=== PATIENT | female | born 1975 | race Caucasian/White ===

== ENCOUNTER → 2017-08-16 | Outpatient (CLI) | payer BC ==
--- NOTE | 2017-08-16 12:40 | WWHP ---
[facility] - HISTORY AND PHYSICAL DATE OF SERVICE: 08/16/2017 CHIEF COMPLAINT: The patient is here for her routine gynecologic exam and mammogram. HPI: This is a 41-year-old, G3, P2-0-1-2 with an LMP of 07/29/17. The patient is without gynecologic complaints. She states her periods are regular every month. PAST MEDICAL HISTORY: Chronic hypertension and depression. MEDICATIONS: 1. Prozac 20 mg daily. 2. Spironolactone 25 mg daily. 3. Lisinopril 10 mg daily. 4. Valtrex 500 mg b.i.d. x3 days p.r.n. She states she has not had frequent outbreaks. ALLERGIES: Allergies to WELLBUTRIN. 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 SOCIAL HISTORY: She denies tobacco and drug use and has about 1 alcohol containing drink per month. 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 She is single. REVIEW OF SYSTEMS: She has gained about 26 pounds over the last 3 years. She denies respiratory or cardiac problems. GI: She has noticed she has problems with dairy foods and believes she is lactose intolerant. PHYSICAL EXAM: Blood pressure 116/76, height 5 feet 5 inches, weight 253 pounds, temperature 99.1, pulse 105. This is a well-developed, heavyset white female, who is alert and oriented x3, in no acute distress. HEENT is within normal limits. NECK: Supple without mass or thyromegaly. CHEST AND LUNGS: Clear to auscultation. HEART: Regular rate and rhythm. Breasts are without mass or discharge. Axillary exam is negative for adenopathy. BACK: Negative for CVA tenderness. ABDOMEN: Obese, soft, nontender, without palpable masses. PELVIC EXAM: Normal external genitalia. The cervix and vagina appear normal. There is no evidence of prolapse. The uterus is mid position nongravid size and nontender. There are no palpable adnexal masses or tenderness. Rectal exam is a is negative for mass or tenderness and is negative for occult blood. EXTREMITIES: Nontender. IMPRESSION: 1. A 41-year-old female with normal gynecologic exam. 2. Overweight. PLAN: 1. Pap smear was performed. 2. Self breast examination was discussed. 3. Mammogram will be done today. 4. We have had a long discussion regarding weight control. I have stressed the importance of healthy eating, regular meals, adequate protein and fiber as well as regular exercise. I also recommended she consider Weight Watchers to help with weight control. 5. Osteoporosis prevention was discussed. 6. She will return in 1 year. GEORGE / JUANN: [id number] /
--- NOTE | 2017-08-17 09:13 | MM ---
Reason for exam: screening (asymptomatic). Last mammogram was performed 2 years and 10 months ago. History: Family history of breast cancer in maternal aunt. Physical Findings: A clinical breast exam by your physician is recommended on an annual basis and results should be correlated with mammographic findings. MG Screening Mammo w CAD Bilateral CC and MLO view(s) were taken. Prior study comparison: October 29, 2014, bilateral MG screening mammo w CAD. October 23, 2013, bilateral digital screening mammo w/CAD. There are scattered fibroglandular densities. There is chronic nodularity in the right breast. There is no discrete abnormality. ASSESSMENT: Negative, BI-RAD 1 RECOMMENDATION: Routine screening mammogram of both breasts in 1 year.
== END | disposition home or self-care (01) ==
LOC: WWCWWP 10:02
PROVIDERS: ATTEND Obstetrics & Gynecology
DX: Z12.31 Encounter for screening mammogram for malignant neoplasm of breast (principal)

== ENCOUNTER → 2019-08-22 | Outpatient (CLI) | payer SELFPAY ==
--- NOTE | 2019-08-23 09:05 | MM ---
Reason for exam: additional evaluation requested from abnormal screening. Last mammogram was performed less than 1 month ago. History: Family history of breast cancer in maternal aunt. Physical Findings: Nurse did not find any significant physical abnormalities on exam. MG Work Up Mamm w CAD RT Spot compression CC, spot compression MLO, and LM view(s) were taken of the right breast. Prior study comparison: August 09, 2019, bilateral MG foundation screening mammo. August 16, 2017, bilateral MG screening mammo w CAD. There are scattered fibroglandular densities. These results were verbally communicated with the patient and result sheet given to the patient on 08/22/19. ASSESSMENT: Probably benign, BI-RAD 3 RECOMMENDATION: Follow-up diagnostic mammogram of the right breast in 6 months.
== END | disposition home or self-care (01) ==
LOC: RADMAMWWP 14:36
PROVIDERS: ATTEND Family Medicine
DX: R92.8 Other abnormal and inconclusive findings on diagnostic imaging of breast (principal)
CPT/HCPCS: 77065

== ENCOUNTER → 2020-01-12 | Outpatient (CLI) | payer BC ==
--- NOTE | 2020-01-12 08:21 | MR ---
EXAMINATION TYPE: MR iac wo/w con DATE OF EXAM: 01/12/2020 COMPARISON: NONE HISTORY: Disorder of acoustic nerve, hearing loss bilaterally. TECHNIQUE: Multiplanar, multisequence images of the brain and brainstem is performed without and with IV contras t, utilizing 11 mL intravenous Gadavist . Acoustic nerve disorder protocol. FINDINGS: Diffusion weighted images demonstrate no evidence of a recent infarct or other diffusion ab normality. There is no extra-axial fluid collection or significant white matter signal abnormality. The ventricular system and cisternal spaces are normal in size and appearance. The brain volume is age appropriate. There is focal area of CSF prominence measuring 1.2 x 1.1 x 1.0 cm axial image 12 an d sagittal image 7 along the medial superior aspect left temporal lobe at junction with the parietal lobe consistent with small arachnoid cyst adjacent to the midbrain with local mass effect adjacent to the left P1 segment. Midline structures demonstrate normal morphology. The craniocervical junction appears within normal limits. Post contrast images demonstrate no abnormal enhancement. The dural venous sinuses appear pa tent. Mild mucosal thickening throughout the ethmoid sinuses bilaterally. Nasal septum deviated to le ft of midline. No suspicious fluid signal mastoid air cells bilaterally. Vestibulocochlear complexes are symmetric a nd thought within normal limits. No suspicious enhancing cerebellopontine angle mass identified bilat erally. IMPRESSION: 1. No suspicious mastoiditis or enhancing mass to account for patient's symptoms of bilateral hearing loss. 2. Small 1.2 cm deep left arachnoid cyst causing local mass effect or compression of the deep superio r aspect left temporal lobe for reference axial image 12. 3. Mild chronic ethmoid sinusitis.
== END | disposition home or self-care (01) ==
LOC: RADMRIMAIN 07:03
PROVIDERS: ATTEND Otolaryngology
DX: G93.0 Cerebral cysts (principal); H93.3X3 Disorders of bilateral acoustic nerves; Z88.8 Allergy status to other drugs, medicaments and biological substances
CPT/HCPCS: 70553; A9585

== ENCOUNTER → 2020-10-18 | Outpatient (CLI) | payer OTHER ==
--- NOTE | 2020-10-18 11:04 | MR ---
EXAMINATION TYPE: MR cervical spine wo con DATE OF EXAM: 10/18/2020 COMPARISON: None HISTORY: Spondylosis CONTRAST: Performed utilizing 0 mL intravenous Gadavist gadolinium contrast. TECHNIQUE: Multiplanar multiecho imaging on a 3.0 Lulu magnet is performed through the cervical spin e. FINDINGS: The craniovertebral junction is normal. Vertebral body alignment is normal. C7-T1: No focal disc herniation or significant disc bulge is evident. No spinal canal stenosis or n eural foraminal stenosis is present. C6-7: No focal disc herniation or significant disc bulge is evident. No spinal canal stenosis or reina ral foraminal stenosis is present. C5-6: There is a broad-based right paracentral disc herniation extending into the right lateral direc tion causing moderate foraminal narrowing. Mild anterior thecal sac compression is present. Cord comp ression is not identified. No spinal canal stenosis is present.. C4-5: There is a large broad-based disc bulge with anterior thecal sac compression. No AP spinal yenny l stenosis is present. There is cord contact with mild cord flattening on the right. No signal abnorm ality is evident. Right foraminal narrowing is present. C3-4: Broad-based disc bulge is present with anterior thecal sac flattening. No spinal canal stenosis present. Neural foramen are patent. C2-3: No focal disc herniation or significant disc bulge is evident. No spinal canal stenosis or reina ral foraminal stenosis is present. Some very minimal syrinx may be present C6-7 and posterior to C7 extending towards the upper thoracic cord. This appears minimal. Recommend follow-up cervical spine with contrast for additional evaluati on. IMPRESSIONS: 1. Large broad right paracentral and right lateral disc herniation C5-C6 causing foraminal narrowing. 2. Large broad-based right paracentral and right lateral disc herniation C4-5 has cord contact and mi ld cord flattening. Foraminal narrowing is present. 3. Minimal syrinx may be within the cervical thoracic junction. Recommend contrast CT cervical spine for additional evaluation.
== END | disposition home or self-care (01) ==
LOC: RADMRIMAIN 10:11
PROVIDERS: ATTEND Neurological Surgery
DX: M48.02 Spinal stenosis, cervical region (principal); M47.12 Other spondylosis with myelopathy, cervical region; M50.021 Cervical disc disorder at C4-C5 level with myelopathy
CPT/HCPCS: 72141

== ENCOUNTER → 2021-10-20 | Outpatient (CLI) | payer BC ==
[2021-10-20 14:07] VITALS: BP 136/82; PULSE 77; RESP 18; TEMP 98.1
--- NOTE | 2021-10-20 15:01 | P.HPOB ---
History of Present Illness H&P Date: 10/20/21 Chief Complaint: The patient is here for her routine gynecologic exam and ma mmogram. This is a 46-year-old 012 with an LMP of 10/06/2021. It is been about 4 years since her last pelvic exam. Her last Pap smear on 08/16/2017 showed low- grade ANTHONY and she did have a colposcopic examination by Dr. Love which also showed low-grade changes. She was instructed to have a follow-up Pap smear within the year, but she states she has not had a Pap smear since then. She do es have occasional genital HSV outbreaks and thinks she has had about 4 during the past year. She no longer uses suppressive Valtrex treatment. She has had occasional vulvar pruritus especially year right before a menstrual period. She denies vaginal discharge or vaginal odor. She did have some itching last night. She used an [id number] yeast infection cream about 2 months ago for such itching. She states she has not been sexually active in the past 4 years. Review of Systems She has lost about 12 pounds since she was here 4 years ago. She denies respir atory, cardiac, or GI problems. 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 She also has had a history of GC and chlamydia in the past. History of Any Multi-Drug Resistant Organisms: None Reported Past Surgical History: Section, Cholecystectomy Additional Past Surgical History / Comment(s): section 2 and voluntary termination of in the past. Past Psychological History: Depression Smoking Status: Former smoker Past Alcohol Use History: Occasional (2 per week) Past Drug Use History: None Reported Additional History: She is single and is not seeing any beta this time. 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 Maternal grandparents both had lung cancer. Medications and Allergies Home Medications Medication Instructions Recorded Confirmed Type FLUoxetine HCL [PROzac] 40 mg PO DAILY 10/20/21 10/20/21 History Lisinopril [Zestril] 25 mg PO DAILY 10/20/21 10/20/21 History Allergies Allergy/AdvReac Type Severity Reaction Status Date / Time bupropion [From Wellbutrin] Allergy Swelling Unverified 10/20/21 14:07 Exam Vital Signs Temp Pulse Resp BP Pulse Ox 10/20/21 14:04 98.1 F 77 18 136/82 97 Intake and Output 10/19/21 10/20/21 10/20/21 22:59 06:59 14:59 Other: Weight 109.316 kg Height 5 feet 5 inches, weight 241 pounds, BMI 40.1. This is a well-developed well-nourished heavyset white female who is alert and oriented times 3 in no acute distress. HEENT: Within normal limits. NECK: Supple without mass or thyromegaly. CHEST AND LUNGS: Clear to auscultation. HEART: Regular rate and rhythm. BREASTS: Are without mass or discharge. AXILLARY EXAM: Negative for adenopathy. BACK: Negative for CVA tenderness. ABDOMEN: Soft, nontender, without palpable masses. PELVIC EXAM:external genitalia reveals generalized mild erythema without focal lesions. There is no vulvar pallor or ulcerations. Cervix and vagina appear normal . There is a small amount of grayish mucousy discharge without odor. There is no evidence of prolapse. The uterus is midposition, nongravid size and nontender. There are no palpable adnexal masses or tenderness. RECTAL EXAM: negative for mass or tenderness and is negative for occult blood. EXTREMITIES: Nontender. IMPRESSION: 1. 46-year-old premenopausal female with intermittent vulvar pruritus with evidence of mild vulvar inflammation on exam today. Differential diagnosis will include Micheline vaginitis and nonspecific vulvar irritation. 2. History of genital HSV with occasional outbreaks. 3. History of a low-grade cervical changes with colposcopic biopsy in 2017. PLAN: 1. Pap smear cotest was performed. 2. Self breast awareness was discussed with the patient. We have also discussed symptoms associated with inflammatory breast cancer. 3. Screening mammogram will be done today. 4. Osteoporosis prevention was discussed. I have stressed the importance of adequate calcium, vitamin D and regular exercise. Recommended amounts of calcium and vitamin D were also discussed. 5. Valtrex 500 mg by mouth twice a day 3 days to be started at the onset of genital HSV symptoms. Electronic prescription will be sent to [facility] pharmacy on . 4 refills will be given. She was instructed to call if she is having a significant increase in frequency. 6. Affirm vaginitis panel was taken from the vagina. 7. She was advised to return in one year for her annual well woman exam and as needed.
--- NOTE | 2021-10-21 14:11 | MM ---
Reason for exam: screening (asymptomatic). Last mammogram was performed 2 years and 2 months ago. History: Family history of breast cancer in maternal aunt. Physical Findings: A clinical breast exam by your physician is recommended on an annual basis and results should be correlated with mammographic findings. MG 3D Screening Mammo W/Cad Bilateral CC and MLO view(s) were taken. Prior study comparison: August 22, 2019, right breast MG work up mamm w CAD RT. August 09, 2019, bilateral MG foundation screening mammo. There are scattered fibroglandular densities. There is chronic nodularity in the right breast. No significant changes when compared with prior studies. ASSESSMENT: Benign, BI-RAD 2 RECOMMENDATION: Routine screening mammogram of both breasts in 1 year.
== END | disposition home or self-care (01) ==
LOC: WWCWWP 13:48
PROVIDERS: ATTEND Obstetrics & Gynecology
DX: Z12.31 Encounter for screening mammogram for malignant neoplasm of breast (principal)
CPT/HCPCS: 77063; 77067

== ENCOUNTER → 2022-06-18 | Outpatient (CLI) | payer BC ==
[2022-06-18 11:01] LABS: Basophils # (A) 0.05 X 10*3/uL (0.00-0.10); Basophils % (A) 0.7 %; Eosinophils # (A) 0.11 X 10*3/uL (0.04-0.35); Eosinophils % (A) 1.6 %; HCT 41.1 % (37.2-46.3); HGB 13.8 g/dL (12.0-15.0); Immature Grans, Automated 0.6 %; Lymphocytes # (A) 1.63 X 10*3/uL (0.90-5.00); Lymphocytes % (A) 23.1 %; MCH 30.1 pg (27.0-32.0); MCHC 33.6 g/dL (32.0-37.0); MCV 89.5 fL (80.0-97.0); Mean Platelet Volume 10.7 fL (9.5-12.2); Monocytes # (A) 0.52 X 10*3/uL (0.20-1.00); Monocytes % (A) 7.4 %; NRBC Per 100 WBC 0 /100 WBCS (0.0-0.0); Neutrophils % (A) 66.6 %; Platelet Count 280 X 10*3/uL (140-440); RBC 4.59 X 10*6/uL (4.10-5.20); RDW 12.6 % (11.5-14.5); WBC 7.05 X 10*3/uL (4.50-10.00)
[2022-06-18 11:30] LABS: Hepatitis B Surface AB- Quant 3.5 mIU/mL; Hepatitis B Surface Antibody Nonreactive (Nonreactive)
[2022-06-18 11:34] LABS: Hepatitis A Antibody IgM Nonreactive (Nonreactive); Hepatitis B Core IgM Nonreactive (Nonreactive); Hepatitis B Surface Antigen Nonreactive (Nonreactive); Hepatitis C IgG Antibody Nonreactive (Nonreactive)
[2022-06-18 12:05] LABS: African American GFR (CKD) 118.7 (60.0-200.0); Albumin 4.2 g/dL (3.8-4.9); Albumin/Globulin Ratio 1.62 (1.60-3.17); Anion Gap 12.8 mmol/L (10.00-18.00); BUN/Creat Ratio 13.29 Ratio (12.00-20.00); Blood Urea Nitrogen 9.3 mg/dL (9.0-27.0); Calcium 9.3 mg/dL (8.7-10.3); Carbon Dioxide 21.2 mmol/L (20.0-27.5); Globulin 2.6 g/dL (1.6-3.3); Non-African American GFR(CKD) 102.5 (60.0-200.0); Potassium 3.9 mmol/L (3.5-5.5); Total Bilirubin 0.5 mg/dL (0.30-1.20); Total Protein 6.8 g/dL (6.2-8.2)
[2022-06-18 17:57] LABS: HIV 2 AB Non-Reactive (Non-Reactive); HIV AB P24 Non-Reactive (Non-Reactive); HIV P24 AG Non-Reactive (Non-Reactive)
== END | disposition home or self-care (01) ==
LOC: LABWHC1 07:23
PROVIDERS: ATTEND Dermatology Procedural Dermatology
DX: L70.0 Acne vulgaris (principal); L63.8 Other alopecia areata
CPT/HCPCS: 36415; 80053; 80074; 85025; 86480; 86706; 87340; 87390

== ENCOUNTER → 2022-09-03 | Outpatient (CLI) | payer BC ==
[2022-09-03 10:44] LABS: Basophils # (A) 0.04 X 10*3/uL (0.00-0.10); Basophils % (A) 0.7 %; Eosinophils # (A) 0.12 X 10*3/uL (0.04-0.35); HCT 39.4 % (37.2-46.3); Immature Grans, Automated 0.7 %; Lymphocytes # (A) 2.07 X 10*3/uL (0.90-5.00); Lymphocytes % (A) 34.3 %; MCH 30.4 pg (27.0-32.0); MCV 92.1 fL (80.0-97.0); Mean Platelet Volume 10.7 fL (9.5-12.2); Monocytes # (A) 0.45 X 10*3/uL (0.20-1.00); Monocytes % (A) 7.5 %; NRBC Per 100 WBC 0 /100 WBCS (0.0-0.0); Neutrophils # (A) 3.31 X 10*3/uL (1.80-7.70); Neutrophils % (A) 54.8 %; Platelet Count 343 X 10*3/uL (140-440); RBC 4.28 X 10*6/uL (4.10-5.20); RDW 13.3 % (11.5-14.5); WBC 6.03 X 10*3/uL (4.50-10.00)
[2022-09-03 10:48] LABS: Albumin 4.2 g/dL (3.8-4.9); Albumin/Globulin Ratio 2.14 (1.60-3.17); BUN/Creat Ratio 14.46 Ratio (12.00-20.00); Blood Urea Nitrogen 10.7 mg/dL (9.0-27.0); Calcium 9.5 mg/dL (8.7-10.3); Carbon Dioxide 26.4 mmol/L (20.0-27.5); Non-African American GFR(CKD) 95.8 (60.0-200.0); Potassium 4.7 mmol/L (3.5-5.5); Total Bilirubin 0.3 mg/dL (0.30-1.20); Total Protein 6.2 g/dL (6.2-8.2)
== END | disposition home or self-care (01) ==
LOC: LABWHC1 07:24
PROVIDERS: ATTEND Dermatology MOHS-Micrographic Surgery
DX: L63.0 Alopecia (capitis) totalis (principal); L70.0 Acne vulgaris; B00.1 Herpesviral vesicular dermatitis
CPT/HCPCS: 36415; 80053; 85025

== ENCOUNTER → 2022-10-19 | Outpatient (CLI) | payer BC ==
[2022-10-19 10:43] LABS: Basophils # (A) 0.04 X 10*3/uL (0.00-0.10); Basophils % (A) 0.6 %; Eosinophils # (A) 0.06 X 10*3/uL (0.04-0.35); Eosinophils % (A) 0.9 %; HCT 38.7 % (37.2-46.3); Immature Grans, Automated 0.7 %; Lymphocytes # (A) 2.66 X 10*3/uL (0.90-5.00); Lymphocytes % (A) 38.9 %; MCH 30.8 pg (27.0-32.0); MCHC 33.6 g/dL (32.0-37.0); MCV 91.7 fL (80.0-97.0); Mean Platelet Volume 10.1 fL (9.5-12.2); Monocytes % (A) 5.8 %; NRBC Per 100 WBC 0 /100 WBCS (0.0-0.0); Neutrophils # (A) 3.63 X 10*3/uL (1.80-7.70); Neutrophils % (A) 53.1 %; Platelet Count 355 X 10*3/uL (140-440); RBC 4.22 X 10*6/uL (4.10-5.20); RDW 13.2 % (11.5-14.5); WBC 6.84 X 10*3/uL (4.50-10.00)
[2022-10-19 10:51] LABS: ALT 8 U/L (8-44); AST 19 U/L (13-35); Albumin 4.3 g/dL (3.8-4.9); Albumin/Globulin Ratio 1.93 (1.60-3.17); Alkaline Phosphatase 50 U/L (41-126); Bilirubin, Conjugated <0.20 mg/dL (0.20-0.40); Globulin 2.2 g/dL (1.6-3.3); Total Protein 6.5 g/dL (6.2-8.2)
== END | disposition home or self-care (01) ==
LOC: LABWHC1 07:40
PROVIDERS: ATTEND Dermatology MOHS-Micrographic Surgery
DX: L63.0 Alopecia (capitis) totalis (principal)
CPT/HCPCS: 36415; 80076; 85025

== ENCOUNTER → 2022-11-30 | Outpatient (CLI) | payer BC ==
[2022-11-30 14:51] VITALS: BP 135/87; PULSE 91; RESP 17; TEMP 98.3
--- NOTE | 2022-11-30 15:28 | P.HPOB ---
History of Present Illness H&P Date: 11/30/22 Chief Complaint: The patient is here for her routine gynecologic exam and ma mmogram. This is a 47-year-old 012 with an LMP of 11/01/2022. The patient has not been sexually active over the past year. She states she has not had a problem with HSV outbreaks since they have been very infrequent and symptoms have been minimal. She has not needed medication for HSV. She was seen about 1 year ago for vaginal irritation and did use Kenalog cream for few days and this resolves. She does have a history of abnormal Pap smears since 2017. In 2017 she had a low-grade ANTHONY Pap smear with positive high-risk HPV testing. Colposcopic examination was done by Dr. Love which showed low-grade ANTHONY. The next Pap smear was done on 10/20/2021 and was negative with a positive high-risk HPV testing. ASCCP management guidelines showed that 12 months retesting was warranted. Review of Systems The patient has gained 6 pounds over the last year. She denies respiratory, cardiac, or G.I. problems. She states she does avoid lactose/dairy products s otis this does seem to cause stomach upset. 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 She also has had a history of GC. chlamydia and HPV in the past. History of Any Multi-Drug Resistant Organisms: None Reported Past Surgical History: Section, Cholecystectomy Additional Past Surgical History / Comment(s): section 2 and voluntary termination of in the past. Past Psychological History: Depression Smoking Status: Former smoker Past Alcohol Use History: Occasional (One per month) Past Drug Use History: None Reported Additional History: She is single and is not seeing anybody at this time. 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 Maternal grandparents both had lung cancer. Medications and Allergies Home Medications Medication Instructions Recorded Confirmed Type FLUoxetine HCL [PROzac] 40 mg PO DAILY 10/20/21 11/30/22 History lisinopriL [Zestril] 25 mg PO DAILY 10/20/21 11/30/22 History valACYclovir HCL [Valtrex] 500 mg PO BID 3 Days #6 tab 10/20/21 11/30/22 Rx Triamcinolone 0.1% Cream [Kenalog 1 applicatio TOPICAL BID PRN #30 gm 10/23/21 11/30/22 Rx 0.1% Cream] Baricitinib [Olumiant] 4 mg PO DAILY 11/30/22 11/30/22 History Allergies Allergy/AdvReac Type Severity Reaction Status Date / Time bupropion [From Wellbutrin] Allergy Swelling Unverified 11/30/22 14:43 lactose Allergy Nausea & Unverified 11/30/22 14:43 Vomiting & Diarrhea Exam Vital Signs Temp Pulse Resp BP Pulse Ox 11/30/22 14:46 98.3 F 91 17 135/87 96 Intake and Output 11/30/22 11/30/22 11/30/22 06:59 14:59 22:59 Other: Weight 112.037 kg Height 5 feet 5 inches, weight 247 pounds, BMI 41.1. This is a well-developed well-nourished heavyset white female who is alert and oriented times 3 in no acute distress. HEENT: Within normal limits. NECK: Supple without mass or thyromegaly. CHEST AND LUNGS: Clear to auscultation. HEART: Regular rate and rhythm. BREASTS: Are without mass or discharge. AXILLARY EXAM: Negative for adenopathy. BACK: Negative for CVA tenderness. ABDOMEN: Soft, nontender, without palpable masses. PELVIC EXAM: Normal external genitalia. Cervix and vagina appear normal. There is no unusual discharge. There is no evidence of prolapse. The uterus is midposition, nongravid size and nontender. There are no palpable adnexal masses or tenderness. RECTAL EXAM: negative for mass or tenderness and is negative for occult blood. EXTREMITIES: Nontender. IMPRESSION: 1. 47-year-old female with normal gynecologic exam. 2. History of abnormal Pap smear in 2017 showing low-grade ANTHONY positive high- risk HPV testing and low-grade changes with colposcopic examination. Her last Pap smear on 10/20/2021 was negative with positive high-risk HPV testing(-16, - 18). 3. History of genital HSV with infrequent mild symptoms. The patient is declining medication. PLAN: 1. Pap smear cotest was performed. The ASCCP management guidelines will be used. 2. Self breast awareness was discussed with the patient. We have also discussed symptoms associated with inflammatory breast cancer. 3. Screening mammogram will be done today. 4. Osteoporosis prevention was discussed. I have stressed the importance of adequate calcium, vitamin D and regular exercise. Recommended amounts of calcium and vitamin D were also discussed. 5. She will call if she is having problems with genital HSV. 6. She was advised to return in one year for her annual well woman exam and as needed.
--- NOTE | 2022-12-01 19:31 | MM ---
Reason for Exam: Screening (asymptomatic). Last mammogram was performed 1 year(s) and 1 month(s) ago. Patient History: Menarche at age 8. First Full-Term at age 16. Premenopausal. Maternal aunt had breast cancer, age 70. Risk Values: Kelly 5 year model risk: 0.7%. NCI Lifetime model risk: 7.3%. Prior Study Comparison: 08/09/2019 Bilateral Screening Mammogram, [facility]. 08/22/2019 Right Diagnostic Mammogram, [facility]. 10/20/2021 Bilateral Screening Mammogram, [facility]. Tissue Density: There are scattered fibroglandular densities. Findings: Analyzed By CAD. Pattern appears stable. Chronic nodularity is within the right breast. No significant interval changes are evident. No suspicious groups of microcalcifications, spiculated or lobular masses, architectural distortion or other secondary signs of malignancy are mammographically apparent. Overall Assessment: Benign, BI-RAD 2 Management: Screening Mammogram of both breasts in 1 year. A negative mammogram report should not preclude additional follow up of suspicious palpable abnormalities. Patient should continue monthly self breast exam. A clinical breast exam by your physician is recommended on an annual basis and results should be correlated with mammographic findings. Electronically signed and approved by: Simón Jaquez D.O. Radiologis
== END ==
LOC: WWCWWP 14:36
PROVIDERS: ATTEND Obstetrics & Gynecology
DX: Z12.31 Encounter for screening mammogram for malignant neoplasm of breast (principal); Z85.3 Personal history of malignant neoplasm of breast; Z88.6 Allergy status to analgesic agent; Z91.011 Allergy to milk products
CPT/HCPCS: 77067

== ENCOUNTER → 2023-06-16 | Outpatient (CLI) | payer BC ==
[2023-06-16 17:11] LABS: HCT 41.8 % (37.2-46.3); HGB 13.9 d/dL (12.0-15.0); MCH 31.4 pg (27.0-32.0); MCHC 33.3 d/dL (32.0-37.0); MCV 94.4 FL (80.0-97.0); Mean Platelet Volume 10.1 FL (9.5-12.2); NRBC Per 100 WBC 0 X 10*3/uL (0.00-0.01); Platelet Count 379 X 10*3/uL (140-440); RBC 4.43 X 10*6/uL (4.10-5.20); RDW 12.8 % (11.5-14.5); WBC 6.38 X 10*3/uL (4.50-10.00)
[2023-06-16 17:20] LABS: BUN/Creat Ratio 14.62 Ratio (12.00-20.00); Blood Urea Nitrogen 11.7 mg/dL (9.0-27.0); Chloride 102 mmol/L (96-109); Chol/HDL Ratio 3.51 Ratio; Glucose 96 mg/dL (70-110); LDL Cholesterol,Calculated 115.2 mg/dL (0.0-131.0); Potassium 4.8 mmol/L (3.5-5.5); Sodium 137 mmol/L (135-145)
[2023-06-16 17:21] LABS: ALT 9 U/L (8-44); AST 17 U/L (13-35); Albumin 4.6 d/dL (3.8-4.9); Albumin/Globulin Ratio 2.19 Ratio (1.60-3.17); Alkaline Phosphatase 54 U/L (41-126); Calcium 9.7 mg/dL (8.7-10.3); Carbon Dioxide 26.6 mmol/L (21.6-31.8); Globulin 2.1 d/dL (1.6-3.3); Total Bilirubin 0.5 mg/dL (0.3-1.2); Total Protein 6.7 d/dL (6.2-8.2)
== END | disposition home or self-care (01) ==
LOC: LABWHC1 07:06
PROVIDERS: ATTEND Dermatology MOHS-Micrographic Surgery
DX: L63.0 Alopecia (capitis) totalis (principal)
CPT/HCPCS: 36415; 80053; 80061; 83036; 84443; 85027

== ENCOUNTER → 2023-11-03 | Outpatient (CLI) | payer BC ==
[2023-11-03 15:04] LABS: HCT 40.3 % (37.2-46.3); HGB 13.3 g/dL (12.0-15.0); MCH 30.6 pg (27.0-32.0); MCV 92.6 FL (80.0-97.0); NRBC Per 100 WBC 0 X 10*3/uL (0.00-0.01); Platelet Count 312 X 10*3/uL (140-440); RBC 4.35 X 10*6/uL (4.10-5.20); RDW 12.9 % (11.5-14.5); WBC 7.96 X 10*3/uL (4.50-10.00)
[2023-11-03 15:48] LABS: Chol/HDL Ratio 2.77 Ratio; LDL Cholesterol,Calculated 99.1 mg/dL (0.0-131.0); VLDL Calculation 19.22 mg/dL (5.00-40.00)
[2023-11-03 15:49] LABS: ALT 15 U/L (8-44); AST 26 U/L (13-35); Albumin 4.2 g/dL (3.8-4.9); Albumin/Globulin Ratio 2.21 Ratio (1.60-3.17); Alkaline Phosphatase 36 U/L (41-126); BUN/Creat Ratio 15.38 Ratio (12.00-20.00); Blood Urea Nitrogen 12.3 mg/dL (9.0-27.0); Calcium 9.4 mg/dL (8.7-10.3); Carbon Dioxide 23.1 mmol/L (21.6-31.8); Chloride 103 mmol/L (96-109); Globulin 1.9 g/dL (1.6-3.3); Glucose 99 mg/dL (70-110); Potassium 4.1 mmol/L (3.5-5.5); Sodium 138 mmol/L (135-145); Total Bilirubin 0.5 mg/dL (0.3-1.2); Total Protein 6.1 g/dL (6.2-8.2)
[2023-11-03 15:52] LABS: Hepatitis A Antibody IgM Nonreactive; Hepatitis B Core IgM Nonreactive; Hepatitis B Surface Antigen Nonreactive; Hepatitis C IgG Antibody Nonreactive
[2023-11-03 17:51] LABS: HIV 2 AB Non-Reactive (Non-Reactive); HIV AB P24 Non-Reactive (Non-Reactive); HIV P24 AG Non-Reactive (Non-Reactive)
== END | disposition home or self-care (01) ==
LOC: LABWHC1 08:21
PROVIDERS: ATTEND Family Medicine
DX: Z11.1 Encounter for screening for respiratory tuberculosis (principal); L65.9 Nonscarring hair loss, unspecified; R73.01 Impaired fasting glucose; Z79.899 Other long term (current) drug therapy
CPT/HCPCS: 36415; 80053; 80061; 80074; 82607; 82746; 83036; 85027; 86480; 87390

== ENCOUNTER → 2023-12-06 | Outpatient (CLI) | payer BC ==
[2023-12-06 08:47] VITALS: BP 105/66; PULSE 75; RESP 17; TEMP 98.3
--- NOTE | 2023-12-06 09:02 | P.HPOB ---
History of Present Illness H&P Date: 12/06/23 Chief Complaint: The patient is here for her routine gynecologic exam and ma mmogram. Is a 56-year-old -0-1-2 with LMP of 11/15/2023. She continues to not be sexually active at this time. Periods have spaced out over the past year and been about every 6 weeks. After her LMP she has had some spotting since then. She denies any significant hot flashes. Her last Pap smear cotest was negative. Because of her prior low-grade changes the plan was to repeat the Pap smear cotesting after 2 to 3 years. She denies any recent HSV outbreaks. Review of Systems The patient has lost 3 pounds over the last year. She denies respiratory, cardiac, or G.I. problems. 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 She also has had a history of GC. chlamydia and HPV in the past. History of Any Multi-Drug Resistant Organisms: None Reported Past Surgical History: Section, Cholecystectomy Additional Past Surgical History / Comment(s): section 2 and voluntary termination of in the past. Past Psychological History: Depression Smoking Status: Former smoker Past Alcohol Use History: Occasional (0-1 drink per month.) Past Drug Use History: None Reported Additional History: She is single and has not seen anybody at this time. 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 Maternal grandparents both had lung cancer. Medications and Allergies Home Medications Medication Instructions Recorded Confirmed Type FLUoxetine HCL [PROzac] 40 mg PO DAILY 10/20/21 12/06/23 History lisinopriL [Zestril] 25 mg PO DAILY 10/20/21 12/06/23 History Baricitinib [Olumiant] 4 mg PO DAILY 11/30/22 12/06/23 History Allergies Allergy/AdvReac Type Severity Reaction Status Date / Time bupropion [From Wellbutrin] Allergy Swelling Unverified 12/06/23 08:02 lactose Allergy Nausea & Unverified 12/06/23 08:02 Vomiting & Diarrhea Exam Vital Signs Temp Pulse Resp BP Pulse Ox 12/06/23 08:05 98.3 F 75 17 105/66 97 Intake and Output 12/05/23 12/06/23 12/06/23 22:59 06:59 14:59 Other: Weight 110.677 kg Height 5 feet 5 inches, weight 244 pounds, BMI 40.6. This is a well-developed well-nourished heavyset white female who is alert and oriented times 3 in no acute distress. HEENT: Within normal limits. NECK: Supple without mass or thyromegaly. CHEST AND LUNGS: Clear to auscultation. HEART: Regular rate and rhythm. BREASTS: Are without mass or discharge. AXILLARY EXAM: Negative for adenopathy. BACK: Negative for CVA tenderness. ABDOMEN: Soft, nontender, without palpable masses. PELVIC EXAM: Normal external genitalia. Cervix and vagina appear normal. There is a small amount of menstrual type blood in the vagina. There is no evidence of prolapse. The uterus is slightly retroverted, nongravid size and nontender. There are no palpable adnexal masses or tenderness. RECTAL EXAM: Rectovaginal exam is negative for mass or tenderness and is negative for occult blood. EXTREMITIES: Nontender. IMPRESSION: 1. 56-year-old perimenopausal female with normal gynecologic exam. 2. Some menstrual spotting during the past 1 month. PLAN: 1. Pap smear was deferred. With her Pap smear history, we will plan on repeating the Pap smear cotest at her next well woman examination. 2. Self breast awareness was discussed with the patient. We have also discussed symptoms associated with inflammatory breast cancer. 3. Screening mammogram was done today. 4. Osteoporosis prevention was discussed. I have stressed the importance of adequate calcium, vitamin D and regular exercise. Recommended amounts of calcium and vitamin D were also discussed. 5. Patient will continue to keep a menstrual calendar and call if her spotting continues during the next month, or if menstrual problems. 6. She is scheduled for a colonoscopy next week. 7. She was advised to return in one year for her annual well woman exam and as needed.
--- NOTE | 2023-12-07 07:59 | MM ---
Reason for Exam: Screening (asymptomatic). Last screening mammogram was performed 12 month(s) ago. Patient History: Menarche at age 8. First Full-Term at age 16. Premenopausal. Maternal aunt had breast cancer, age 70. Risk Values: Kelly 5 year model risk: 0.8%. NCI Lifetime model risk: 7.1%. Prior Study Comparison: 08/22/2019 Right Diagnostic Mammogram, [facility]. 10/20/2021 Bilateral Screening Mammogram, [facility]. 11/30/2022 Bilateral MG screening mammo w CAD, [facility]. Tissue Density: There are scattered fibroglandular densities. Findings: Analyzed By CAD. There is no suspicious group of microcalcifications or new suspicious mass in either breast. Overall Assessment: Benign, BI-RAD 2 Management: Screening Mammogram of both breasts in 1 year. . Patient should continue monthly self-breast exams. A clinical breast exam by your physician is recommended on an annual basis. This exam should not preclude additional follow-up of suspicious palpable abnormalities. Note on Kelly scores and lifetime risk: 1. A Kelly score greater than 3% is considered moderate risk. If this is the case, consider specialist referral to assess eligibility for a risk reducing agent. 2. If overall lifetime risk for the development of breast cancer is 20% or higher, the patient may qualify for future screening with alternating mammogram and breast MRI. Electronically signed and approved by: Jose Juan Ramachandran M.D. Radiologis
== END ==
LOC: WWCWWP 07:55
PROVIDERS: ATTEND Obstetrics & Gynecology
DX: Z12.31 Encounter for screening mammogram for malignant neoplasm of breast (principal); N95.8 Other specified menopausal and perimenopausal disorders; N93.8 Other specified abnormal uterine and vaginal bleeding; F32.A Depression, unspecified; I10 Essential (primary) hypertension; Z80.3 Family history of malignant neoplasm of breast; Z87.891 Personal history of nicotine dependence; Z88.8 Allergy status to other drugs, medicaments and biological substances; Z79.899 Other long term (current) drug therapy; Z91.018 Allergy to other foods
CPT/HCPCS: 77067

== ENCOUNTER 2023-12-15 08:46 | Day surgery (SDC) | payer BC ==
[~2023-12-15 08:46] MED LIST: LIDOCAINE 1% (10MG/ML) FOR IV START INTRADERMA PRN
[2023-12-15 10:00] VITALS: RESP 16; TEMP 97.7
[2023-12-15] MEDS: LACTATED RINGERS 1,000 ML IV SCH (10:27)
[2023-12-15] MEDS ORDERED: PROPOFOL 10 MG/ML 20 ML VIAL IV ONE (11:31)
--- NOTE | 2023-12-15 11:34 | P.GSHP ---
History of Present Illness H&P Date: 12/15/23 Chief Complaint: Positive Cologuard test, screening colonoscopy 48-year-old female presents today for screening colonoscopy. Patient had a recent positive Cologuard test. Past Medical History Past Medical History: GERD/Reflux, Hypertension Additional Past Medical History / Comment(s): Past P[employer]HER [employer]NER history: Recurrent genital HSV. She also has had a history of GC. chlamydia and HPV in the past. + cologard History of Any Multi-Drug Resistant Organisms: None Reported Past Surgical History: Section, Cholecystectomy Additional Past Surgical History / Comment(s): section 2 and voluntary termination of in the past. Past Anesthesia/Blood Transfusion Reactions: No Reported Reaction Smoking Status: Former smoker - Past Family History Maternal aunt Family Medical History: Cancer Additional Family Medical History / Comment(s): Breast cancer. Maternal grandparents both had lung cancer. Medications and Allergies Home Medications Medication Instructions Recorded Confirmed Type FLUoxetine HCL [PROzac] 40 mg PO DAILY 10/20/21 12/14/23 History lisinopriL [Zestril] 25 mg PO DAILY 10/20/21 12/14/23 History Baricitinib [Olumiant] 4 mg PO DAILY 11/30/22 12/14/23 History Unk Fish Oil 1 tab PO DAILY 12/14/23 12/14/23 History Unk Vitamin E 1 tab PO DAILY 12/14/23 12/14/23 History Allergies Allergy/AdvReac Type Severity Reaction Status Date / Time bupropion [From Wellbutrin] Allergy Swelling Unverified 12/15/23 09:57 lactose Allergy Nausea & Unverified 12/15/23 09:57 Vomiting & Diarrhea Surgical - Exam Vital Signs Temp Pulse Resp BP Pulse Ox 97.7 F 84 16 130/82 96 12/15/23 09:55 12/15/23 09:55 12/15/23 09:55 12/15/23 09:55 12/15/23 09:55 - General well developed, well nourished, no distress - Eyes PERRL - ENT normal pinna - Neck no masses - Respiratory normal expansion - Cardiovascular Rhythm: regular - Abdomen Abdomen: soft, non tender Assessment and Plan Assessment: Positive Cologuard test. Will perform screening colonoscopy.
--- NOTE | 2023-12-15 11:58 | P.OP ---
Date of Procedure: 12/15/23 Preoperative Diagnosis: Screening colonoscopy Positive Cologuard Postoperative Diagnosis: Normal colonoscopy Procedure(s) Performed: Colonoscopy Anesthesia: MAC Surgeon: Juan Mohr Pathology: none sent Condition: stable Disposition: PACU Description of Procedure: Patient was placed on the endoscopy table in the lateral position. She received IV sedation. Digital rectal exam was performed. This revealed no abnormalities. The flexible colonoscope was then placed patient anus and passed throughout the entire colon. The ileocecal valve was visualized. The cecum, ascending and transverse colon appeared normal. The descending and sigmoid colon appeared normal. Scope was then repacked the rectum and this appeared normal. Scope withdrawn for the patient.
[2023-12-15 13:03] VITALS: BP 108/67; PULSE 72
== END 2023-12-15 12:50 | disposition home or self-care (01) ==
LOC: ORWHC2ENDO 08:46
PROVIDERS: ATTEND Surgery
DX: Z12.11 Encounter for screening for malignant neoplasm of colon (principal); I10 Essential (primary) hypertension; K21.9 Gastro-esophageal reflux disease without esophagitis; Z90.49 Acquired absence of other specified parts of digestive tract; Z98.891 History of uterine scar from previous surgery; Z87.891 Personal history of nicotine dependence; Z80.3 Family history of malignant neoplasm of breast; Z80.1 Family history of malignant neoplasm of trachea, bronchus and lung; Z88.8 Allergy status to other drugs, medicaments and biological substances; Z79.899 Other long term (current) drug therapy
CPT/HCPCS: 81025; 45378; J2704

== ENCOUNTER → 2024-01-03 | Day surgery (SDC) | payer BC ==
--- NOTE | 2024-01-03 09:03 | P.PCN ---
Date of Procedure: 01/03/24 Preoperative Diagnosis: Dysfunctional uterine bleeding Postoperative Diagnosis: Dysfunctional uterine bleeding Procedure(s) Performed: Endometrial biopsy Anesthesia: none Surgeon: Lucio Pyle Estimated Blood Loss (ml): 5 Pathology: other (Endometrial tissue) Condition: stable Disposition: same day Indications for Procedure: This was a 48-year-old female who was having less frequent menstrual periods about every 6 months until her LMP of 11/15/2023. She has had light bleeding following her LMP until 3 days ago when the bleeding became heavier like the heavy part of her period. Operative Findings: The uterus sounded to 6.5 cm. A moderate to large amount of blood was initially obtained followed by small to moderate tissue. The uterus was nongravid size and there were no palpable adnexal masses or tenderness. Description of Procedure: The patient indicated that her bleeding increased over the past 3 days and was like a heavy menstrual period. She also has been having some cramping during these 3 days. I explained the procedure of an endometrial biopsy including possible risks and Occasions including bleeding, infection, and possible uterine perforation. All questions were answered. Preprocedure vitals: Blood pressure 115/70, height 5 feet 5 inches, weight 245 pounds, temperature 98.3, pulse 76, pulse ox 97%. Patient was placed in the lithotomy position. Bimanual examination revealed a mid positioned, nongravid size uterus. There are no palpable adnexal masses or tenderness. A speculum was inserted into the vagina. There was a moderate to large amount of menstrual type blood in the vagina which was cleared. The cervix and vagina were prepped with Betadine solution. An Allis clamp was used to grasp the anterior lip of the cervix. A 3 mm endometrial biopsy instrument was placed and this was then sutured to 6.5 cm. The Allis clamp was shifted to the posterior cervix and the uterus still measured 6.5 cm. A small dilator was used and this also advanced to about 6.5 cm without difficulty. The 3 mm endometrial biopsy instrument was reinserted and negative pressure was applied. The instrument filled with blood immediately. This was repeated 3 more times with it still filling with blood. On the fourth repeat tissue seemed to be obtained and this was sent for pathological examination. One additional pass was made using a [id number] rotating motion and a small to moderate amount of tissue was obtained. The patient tolerated the procedure well. The patient was discharged in stable condition. The patient was instructed to call if she is having very heavy bleeding, unusual pain, fever, or problems. Impression: Dysfunctional uterine bleeding, probably related to an anovulatory cycle. Plan: The patient will be started on cyclic Provera 10 mg, one daily for 12 days. If the endometrial biopsy is benign, we will consider repeating this for 3 cycles. The electronic perception will be sent to [facility] pharmacy on
[2024-01-03 09:46] VITALS: BP 115/70; PULSE 76; RESP 17; TEMP 98.3
--- NOTE | 2024-01-10 17:05 | P.PN ---
Progress Note - Text Progress Note Date: 01/10/24 OUTPATIENT FOLLOW-UP NOTE TEST(S)/RESULTS: Endometrial atypical biopsy pathology results from 01/03/2024 showed fragments of breakdown/bleeding endometrium. METHOD OF NOTIFICATION: Patient was notified by phone on 01/10/2024. PATIENT COMMENTS: The patient states she did start the Provera on the and has used it for about 1 week. 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 DIAGNOSIS: Dysfunctional uterine bleeding with endometrial biopsy showing f ragments of breakdown/bleeding endometrium. DISCUSSION: We'll continue to use the Provera for 12 days each month starting on the of each month. She understands that her flow may increase after the completion of the 12 days of Provera and this will be considered a withdrawal bleed. She will keep a menstrual calendar and call if she is having issues with heavy or unpredictable bleeding. She will use the cyclic Provera for at least 3 cycles, then we will have a trial off of the Provera. If persistent dysfunctional bleeding, heavy bleeding, or prolonged bleeding, consider referral for hysteroscopy and D&C. She will make a follow-up appointment after 3 months if she is having more than monthly menstrual periods or if problems. PLAN: As above.
== END ==
LOC: WWCWWP 07:53
PROVIDERS: ATTEND Obstetrics & Gynecology
DX: N93.8 Other specified abnormal uterine and vaginal bleeding (principal)
CPT/HCPCS: 58100; 88305

== ENCOUNTER → 2024-02-23 | Outpatient (CLI) | payer BC ==
[2024-02-23 11:16] LABS: HCT 37.3 % (37.2-46.3); HGB 12.4 g/dL (12.0-15.0); MCH 31.3 pg (27.0-32.0); MCHC 33.2 g/dL (32.0-37.0); MCV 94.2 FL (80.0-97.0); Mean Platelet Volume 10.7 FL (9.5-12.2); NRBC Per 100 WBC 0 X 10*3/uL (0.00-0.01); Platelet Count 323 X 10*3/uL (140-440); RBC 3.96 X 10*6/uL (4.10-5.20); WBC 6.83 X 10*3/uL (4.50-10.00)
[2024-02-23 11:41] LABS: ALT 7 U/L (8-44); AST 18 U/L (13-35); Albumin 4.3 g/dL (3.8-4.9); Albumin/Globulin Ratio 2.26 Ratio (1.60-3.17); Alkaline Phosphatase 39 U/L (41-126); BUN/Creat Ratio 16.86 Ratio (12.00-20.00); Blood Urea Nitrogen 11.8 mg/dL (9.0-27.0); Calcium 9.9 mg/dL (8.7-10.3); Carbon Dioxide 24.7 mmol/L (21.6-31.8); Chloride 104 mmol/L (96-109); Globulin 1.9 g/dL (1.6-3.3); Glucose 111 mg/dL (70-110); Potassium 4.6 mmol/L (3.5-5.5); Sodium 139 mmol/L (135-145); Total Bilirubin 0.3 mg/dL (0.3-1.2); Total Protein 6.2 g/dL (6.2-8.2)
== END | disposition home or self-care (01) ==
LOC: LABWHC1 07:27
PROVIDERS: ATTEND Physician Assistant Medical
DX: I10 Essential (primary) hypertension (principal); Z79.899 Other long term (current) drug therapy
CPT/HCPCS: 36415; 80053; 85027

== ENCOUNTER → 2024-06-12 | Outpatient (CLI) | payer BC | END | disposition home or self-care (01) | LOC: LABWHC1 15:30 | PROVIDERS: ATTEND Physician Assistant Medical | DX: I10 Essential (primary) hypertension (principal); L65.9 Nonscarring hair loss, unspecified; R73.01 Impaired fasting glucose; Z79.899 Other long term (current) drug therapy | CPT/HCPCS: 80053; 80061; 83036; 84443; 85027 ==

== ENCOUNTER → 2025-03-21 | Outpatient (CLI) | payer BC ==
[2025-03-21 10:15] LABS: HCT 38.9 % (37.2-46.3); MCH 30.6 pg (27.0-32.0); MCHC 33.4 g/dL (32.0-37.0); MCV 91.5 FL (80.0-97.0); Mean Platelet Volume 10.7 FL (9.5-12.2); NRBC Per 100 WBC 0 X 10*3/uL (0.00-0.01); Platelet Count 291 X 10*3/uL (140-440); RBC 4.25 X 10*6/uL (4.10-5.20); RDW 12.7 % (11.5-14.5)
[2025-03-21 10:41] LABS: ALT 11 U/L (8-44); AST 22 U/L (13-35); Albumin 4.4 g/dL (3.8-4.9); Alkaline Phosphatase 45 U/L (41-126); BUN/Creat Ratio 15.22 Ratio (12.00-20.00); Blood Urea Nitrogen 13.7 mg/dL (9.0-27.0); Calcium 9.6 mg/dL (8.7-10.3); Carbon Dioxide 23.2 mmol/L (21.6-31.8); Chloride 105 mmol/L (96-109); Chol/HDL Ratio 3.72 Ratio; Globulin 2.2 g/dL (1.6-3.3); Glucose 99 mg/dL (70-110); LDL Cholesterol,Calculated 105.5 mg/dL (0.0-131.0); Potassium 4.5 mmol/L (3.5-5.5); Sodium 139 mmol/L (135-145); Total Bilirubin 0.5 mg/dL (0.3-1.2); Total Protein 6.6 g/dL (6.2-8.2); VLDL Calculation 18.14 mg/dL (5.00-40.00)
== END | disposition home or self-care (01) ==
LOC: LABWHC1 07:32
PROVIDERS: ATTEND Family Medicine
DX: I10 Essential (primary) hypertension (principal); L65.9 Nonscarring hair loss, unspecified; Z79.899 Other long term (current) drug therapy
CPT/HCPCS: 36415; 80053; 80061; 83036; 84443; 85027